=== PATIENT | male | born 1965 | race Caucasian/White ===

== ENCOUNTER → 2018-06-24 | Outpatient (CLI) | payer BC, MEDICARE ==
[2014-07-01 10:24] VITALS: BP 132/74
[~2018-06-24] MED LIST: CLON2TAB9 PO; CYCL10TA2 PO; IBUP200T77 PO; OXYC-327 PO; OXYC-328 PO; OXYC10TA45 PO; OXYC1TAB8 PO; ROPI0.5T PO; TRAZ-86 PO
[2018-06-24 14:59] LABS: BASO % 1 % (0-3); EOS # 0.2 x10^3/uL (0.0-0.7); EOS % 4 % (0-3); HEMOGLOBIN 15.6 g/dL (13.0-17.5); LYMPH # 1.8 x10^3/uL (1.0-4.8); LYMPH % 28 % (24-48); MEAN CORPUSCULAR HEMOGLOBIN 31 pg (25-35); MEAN CORPUSCULAR HGB CONC 35 g/dL (31-37); MEAN CORPUSCULAR VOLUME 90 fL (79-100); MONO # 0.5 x10^3/uL (0.0-1.1); MONO % 7 % (0-9); NEUT % 61 % (31-73); PLATELET COUNT 227 x10^3/uL (140-400); RED CELL DISTRIBUTION WIDTH 13.6 % (11.5-14.5); WHITE BLOOD COUNT 6.6 x10^3/uL (4.0-11.0)
[2018-06-24 15:16] LABS: ALBUMIN 3.8 g/dL (3.4-5.0); CALCIUM 9.5 mg/dL (8.5-10.1); CREATININE 0.9 mg/dL (0.7-1.3); GFR 88.3; POTASSIUM 3.9 mmol/L (3.5-5.1); TOTAL BILIRUBIN 0.3 mg/dL (0.2-1.0); TOTAL PROTEIN 7.5 g/dL (6.4-8.2)
--- NOTE | 2018-06-28 09:53 | HP ---
ADMIT DATE: 06/28/2018 Jam Mcdonough dictating for Dr. Chao Dixon. DATE OF SURGERY: 07/01/2018 HISTORY OF PRESENT ILLNESS: The patient is a pleasant 52-year-old, who in 2013 underwent an ACDF from C3 through C5 and did well from that surgery. Prior to that, he underwent a posterior cervical microdecompression surgery at C4-C5 and for a time did well following that operation. Currently, he notices neck pain, which has been progressive along with left facial tingling. He notices pain which radiates primarily into both of his shoulders and then into his left arm and forearm. He feels that there could be some numbness in his hands and as well he notices some bilateral hip burning and pain in his legs and feet, which he describes as a numb tingling painful sensation. His problems began in 2014 and have been slowly worsening. He rates his pain as a 4/10. Lifting, bending and twisting increases his pain. He says that massage helps him. Sitting or lying down also helps him. He takes Percocet when necessary. He has had epidural steroid injections for this problem without significant benefit. PAST MEDICAL HISTORY: Headaches, arthritis, head or neck injury, swelling of the limbs, trauma. PAST SURGICAL HISTORY: Lumbar surgery 2005, lumbar surgery 2007, posterior cervical decompression C4-C5 bilaterally in 02/2014, and ACDF C3-C4 and C4-C5 in 06/2014. FAMILY HISTORY: Cancer and hypertension. SOCIAL HISTORY: Student. . Quit smoking this year. Drinks 2 alcoholic beverages per day. ALLERGIES: No known drug allergies. CURRENT MEDICATIONS: Percocet, ropinirole. REVIEW OF SYSTEMS: A 12-point review of systems was obtained and is noncontributory except for that mentioned above. PHYSICAL EXAMINATION: NEUROSURGERY EXAMINATION: GENERAL APPEARANCE: Alert, pleasant, no acute distress. HEAD: Normocephalic and atraumatic. NECK AND THYROID: Swit-pi-ombendea tenderness with palpation of posterior cervical region, well healed incision. SKIN: Warm and dry. MUSCULOSKELETAL: Cervical paraspinal muscle bulk is normal, cervical range of motion is restricted, normal range of motion of the upper extremities bilaterally. EXTREMITIES: No clubbing, cyanosis or edema. NEUROLOGIC: Alert and oriented x 3, normal recent and remote memory, strength 5/5 in bilateral upper and lower extremities, sensory was intact to light touch in the upper and lower extremities, reflexes were present and symmetric in the upper and lower extremities bilaterally, normal gait. IMAGING: Reviewed. I reviewed his recent cervical MRI scan. There are postoperative changes with his anterior fusion extending from C3 through C5. There is bilateral neural foraminal stenosis at C3-C4. ASSESSMENT: 1. Radiculopathy, lumbar region. 2. Other spondylosis with radiculopathy, cervical region. 3. Arthrodesis status. 4. Cervicalgia. PLAN: I suspect his current symptoms are related bilateral neural foraminal narrowing at C3-C4. I explained that I could offer surgery at that level and decompress him. He would like to move forward with that. I did discuss the risks with him. I explained that the symptoms he is demonstrating do not perfectly match a problem at C3-C4. He understands that he may not improve significantly with the surgery, but would like to move forward. I additionally studied his lumbar MRI scan. I noted postoperative changes and mild stenosis at L3-L4 with epidural lipomatosis. I do not see a surgical problem. I would like to proceed with cervical surgery as discussed above. The patient agrees and has no further questions. We will make the arrangements. CHAO DIXON MD DR: SIMONE/shay JOB#: [id number] / [id number]
== END | disposition home or self-care (01) ==
LOC: SURGPAT 14:29
PROVIDERS: ATTEND Neurological Surgery
DX: Z01.818 Encounter for other preprocedural examination (principal); M47.892 Other spondylosis, cervical region; M54.12 Radiculopathy, cervical region; M19.90 Unspecified osteoarthritis, unspecified site; Z98.1 Arthrodesis status; Z87.891 Personal history of nicotine dependence; Z82.49 Family history of ischemic heart disease and other diseases of the circulatory system; Z80.8 Family history of malignant neoplasm of other organs or systems
CPT/HCPCS: 36415; 80053; 85025; 87641

== ENCOUNTER → 2018-07-01 | Day surgery (SDC) | payer BC, MEDICARE ==
[~2018-07-01] VITALS: Ht 172.7 cm; Wt 117.9 kg
[~2018-07-01] MED LIST changes: +BACITRACIN 50,000 UNIT in IV NORMAL SALINE 1000ML BAG 1,000 ML IRR ONE; +BUPIVAC MPF-EPI 0.5%-1:200000 30 ML VIAL. ONE; +DEXAMETHASONE SOD PHOS 20 MG/5 ML VIAL. ONE; +DOCU-109 PO; +GELATIN SPONGE SIZE 100. ONE; +GLYCOPYRROLATE 1 MG/5 ML VIAL. ONE; +HYDROmorphone 2 MG/ML VIAL IV PRN; +IV RINGERS,LACTATED 1000ML 1,000 ML IV SCH; +KETOROLAC 60 MG/2 ML INJ FOR OR. ONE; +LIDOCAINE 1% PF 2 ML VIAL. ID PRN; +METH-38 PO; +MIDAZOLAM HCL/PF 2 MG/2 ML VIAL. ONE; +MORPHINE SULFATE 2 MG/ML VIAL. IV PRN; +NEOSTIGMINE METHYLSULFATE 5 MG/5 ML SYRINGE. ONE; +ONDANSETRON PF 4 MG/2 ML VIAL. IV PRN; +ONDANSETRON PF 4 MG/2 ML VIAL. ONE; +OXYC-323 PO; +PHENYLEPHRINE 10 MG/ML VIAL. ONE; +PROCHLORPERAZINE 10 MG/2 ML VIAL. IV PRN; +PROPOFOL 50 ML IV ONE; +REMIFENTANIL 1 MG VIAL. IV ONE; +REMIFENTANIL 2 MG VIAL. IV ONE; +ROCURONIUM 50 MG/5 ML VIAL. ONE; +SUCCINYLCHOLINE 200 MG/10 ML VIAL. ONE; +THROMBIN TOPICAL 20,000 UNIT SPRAY.SYRN KIT TP ONE; +ePHEDrine PF IN SALINE 50 MG/5 ML DISP.SYRIN IV ONE; +fentaNYL PF VIAL 100 MCG/2 ML VIAL IV PRN; +fentaNYL PF VIAL 100 MCG/2 ML VIAL ONE; +oxyCODONE/APAP 5/325 1 TAB TABLET PO ONE
--- NOTE | 2018-07-01 12:05 | DISCH ---
DISCHARGE INSTRUCTIONS Condition on Discharge Condition on Discharge: Stable Activity After Discharge Activity Instructions for Disc: Activity as tolerated, Avoid exertion, Walk in house, Other, see below Other activity instructions: no driving for a week Bathing Instructions: Shower-keep dressing dry, No Tub Bath until see Lifting Instructions after Dis: No heavy lifting, No pulling or pushing, Do not lift >10 pounds Exercise Instruction after Dis: Walk 10 min, 3 x per day, Exercise per therapy Weight Bearing Status after Di: No restrictions Diet after Discharge Diet after Discharge: Regular Additional Diet Restrictions: resume home diet Diet Texture: Regular Wound Incision Care Wound/Incision Care: Ice to area for comfort, Other, see below Other wound/incision instructi: may remove dressing in 48 hrs if dry then may shower, no soaking Wound Care Equipment: Dressings Contacting the after DC Call your doctor for: Concerns you may have Follow-Up Follow up with: Dr. Dixon's nurse in 2 weeks [phone] Treatment/Equipment after DC Adaptive Equipment Issued: None JOURDAN DIXON MD Jul 01, 2018 12:05
[2018-07-01 13:30] VITALS: BP 167/97
--- NOTE | 2018-07-02 16:08 | PATHOLOGY ---
[facility] Accession Number: [id number] . 01 Material submitted: . CERVICAL DECOMPRESSION . 01 Clinician provided ICD-10: M47.892 M54.12 . 01 Clinical history: . Cervical spondylosis and radiculopathy . 02 Diagnosis: Segments of fibrocartilaginous, fibroadipose, and skeletal muscle tissue and bone, cervical decompression: - Degenerative changes of fibrocartilaginous tissue. . (JPM:mm; 07/02/18) [facility]/07/02/2018 . 02 Comment: There is no evidence of an acute inflammatory process or malignancy. . (JPM:mml; 07/02/18) . 02 Electronically signed: . Lawson Abreu MD, Pathologist NPI- [id number] . 01 Gross description: . Received in formalin labeled "Jimi, Merrick, cervical decompression," are several pieces of glistening, fibrous tissue measuring 2.2 x 1.4 x 0.3 cm in aggregate dimensions, containing small fragments of possible bone. The tissue is filtered and submitted entirely in cassette A1, following decalcification. (TSD; 07/01/2018) TOB/TOB . 02 Pathologist provided ICD-10: M50.30 . 02 CPT . 730612, 606394 Specimen Comment: A courtesy copy of this report has been sent to Specimen Comment: [phone], . Specimen Comment: Report sent to / DR GIBSON Specimen Comment: A duplicate report has been generated due to demographic updates. Performed at: [address], [place], [place] [id number] MD Parth Amaya MD Phone: [phone] Performed at: 02 [facility] [address] [place], [place] [id number] MD Lawson Abreu MD Phone: [phone]
--- NOTE | 2018-07-03 10:28 | HP ---
ADMIT DATE: 07/01/2018 DATE OF SURGERY: 07/01/2018 HISTORY OF PRESENT ILLNESS: The patient is a pleasant 52-year-old, who in 2013 underwent an ACDF from C3 through C5 and did well from that surgery. Prior to that, he underwent a posterior cervical microdecompression surgery at C4-C5 and for a time did well following that operation. Currently, he notices neck pain, which has been progressive along with left facial tingling. He notices pain which radiates primarily into both of his shoulders and then into his left arm and forearm. He feels that there could be some numbness in his hands and as well he notices some bilateral hip burning and pain in his legs and feet, which he describes as a numb tingling painful sensation. His problems began in 2014 and have been slowly worsening. He rates his pain as a 4/10. Lifting, bending and twisting increases his pain. He says that massage helps him. Sitting or lying down also helps him. He takes Percocet when necessary. He has had epidural steroid injections for this problem without significant benefit. PAST MEDICAL HISTORY: Headaches, arthritis, head or neck injury, swelling of the limbs, trauma. PAST SURGICAL HISTORY: Lumbar surgery 2005, lumbar surgery 2007, posterior cervical decompression C4-C5 bilaterally in 02/2014, and ACDF C3-C4 and C4-C5 in 06/2014. FAMILY HISTORY: Cancer and hypertension. SOCIAL HISTORY: Student. . Quit smoking this year. Drinks 2 alcoholic beverages per day. ALLERGIES: No known drug allergies. CURRENT MEDICATIONS: Percocet, ropinirole. REVIEW OF SYSTEMS: A 12-point review of systems was obtained and is noncontributory except for that mentioned above. PHYSICAL EXAMINATION: NEUROSURGERY EXAMINATION: GENERAL APPEARANCE: Alert, pleasant, no acute distress. HEAD: Normocephalic and atraumatic. NECK AND THYROID: Nbrl-bz-[id number] tenderness with palpation of posterior cervical region, well healed incision. SKIN: Warm and dry. MUSCULOSKELETAL: Cervical paraspinal muscle bulk is normal, cervical range of motion is restricted, normal range of motion of the upper extremities bilaterally. EXTREMITIES: No clubbing, cyanosis or edema. NEUROLOGIC: Alert and oriented x 3, normal recent and remote memory, strength 5/5 in bilateral upper and lower extremities, sensory was intact to light touch in the upper and lower extremities, reflexes were present and symmetric in the upper and lower extremities bilaterally, normal gait. IMAGING: I reviewed his recent cervical MRI scan. There are postoperative changes with his anterior fusion extending from C3 through C5. There is bilateral neural foraminal stenosis at C3-C4. ASSESSMENT/ PLAN: I suspect his current symptoms are related bilateral neural foraminal narrowing at C3-C4. I explained that I could offer surgery at that level and decompress him. He would like to move forward with that. I did discuss the risks with him. I explained that the symptoms he is demonstrating do not perfectly match a problem at C3-C4. He understands that he may not improve significantly with the surgery, but would like to move forward. I additionally studied his lumbar MRI scan. I noted postoperative changes and mild stenosis at L3-L4 with epidural lipomatosis. I do not see a surgical problem. I would like to proceed with cervical surgery as discussed above. The patient agrees and has no further questions. We will make the arrangements. JOURDAN DIXON MD DR: SIMONE/shay JOB#: [id number] / [id number] PARKER
--- NOTE | 2018-07-10 02:12 | OP ---
DATE OF SURGERY: 07/01/2018 PREOPERATIVE DIAGNOSIS: Foraminal narrowing, C3-C4, bilateral. POSTOPERATIVE DIAGNOSIS: Foraminal narrowing, C3-C4, bilateral. OPERATION PERFORMED: Posterior cervical micro hemilaminotomy, medial facetectomy, C3-C4, bilateral. The operation was done with EMG monitoring, motor evoked potentials, somatosensory evoked potentials, fluoroscopy and microscopic dissection. SURGEON: Chao Dixon M.D. HAND METHOD LASTING MACHINE OPERATOR: VELIA Butterfield assisted with the surgery. She assisted with the exposure, the microdecompression as well as the closure. OPERATIVE INDICATIONS: The patient is a very pleasant 52-year-old male who in the past has undergone an anterior cervical surgery. He then developed cervical radiculopathy and on imaging studies, was found to have significant foraminal narrowing at C3-C4. I recommended posterior cervical microdecompressive surgery at this level. I spoke with him about the surgery and the risks involved. He understood and wished to go ahead. DESCRIPTION OF PROCEDURE: Following general endotracheal anesthesia, the patient was positioned prone in Martinez pins on the Tre table. His posterior cervical region was then clipped, prepped and draped in the standard fashion. KEON hose and AV impulse boots were applied for DVT prophylaxis. The microscope was draped. Fluoroscopy was draped and brought into field. Monitoring was established. Ancef 2 grams were given less than 1 hour prior to initiation of the surgery. Using fluoroscopic guidance, a midline incision was made, extending from the upper C3 to inferior C4. I dissected down to the skin and subcutaneous tissue. I reflected the paraspinal muscles of the left side and placed a Silverton microdisk retractor. I brought in the microscope and the remainder of surgery was done with the microscope using microscopic technique. I burred down a generous hemilaminotomy at C3-C4 with a high-speed air drill and then I followed the nerve root laterally, trimming the bone with the high-speed air drill until it was quite thin and then using a 1-mm Kerrison to gently unroof the foramen and follow the root laterally. I worked until I was easily able to pass the blunt hook out along the course of the root and completely decompress it. This was done first on the left thigh and then I switched and created an exposure on the right. I performed the identical operation on the right side at this level. At this point, then I irrigated copiously with antibiotic solution. I found that I had an excellent decompression bilaterally. I closed the wound in layers with absorbable sutures and the skin was closed with skin mitzy. The operation went very well. The patient was awakened uneventfully, taken to recovery room in excellent condition with normal strength in the extremities. I was quite pleased with the surgery. CHAO DIXON MD DR: SIMONE/shay JOB#: [id number] / [id number] PARKER
== END | disposition home or self-care (01) ==
LOC: SURG 07:06
PROVIDERS: ATTEND Neurological Surgery
DX: M48.02 Spinal stenosis, cervical region (principal); M19.90 Unspecified osteoarthritis, unspecified site; Z98.890 Other specified postprocedural states; Z82.49 Family history of ischemic heart disease and other diseases of the circulatory system; Z87.891 Personal history of nicotine dependence; Z72.89 Other problems related to lifestyle; Z79.899 Other long term (current) drug therapy; M47.22 Other spondylosis with radiculopathy, cervical region; Z98.1 Arthrodesis status
CPT/HCPCS: 63045; 63048; 88304; 88311; 97162; 97530; A7015; G8978; G8979; G8980; J0330; J0690; J1100; J1885; J2250; J2405; J2704; J2710; J3010; J3490; J7030; J7120; 76000